=== PATIENT | female | born 1990 | race Caucasian/White ===

== ENCOUNTER 2017-07-27 05:55 | Inpatient (IN) | payer OTHER ==
[~2017-07-27] VITALS: Ht 175.3 cm; Wt 2.7 kg
[2017-07-27] MEDS ORDERED: PRENATAL 19 TA1 EACH PO (07:31)
== END 2017-07-30 11:43 | DRG 766 ==
LOC: LDR 05:55 → OB/GYN 05:55
PROVIDERS: Obstetrics & Gynecology
PROC: 3E033VJ Introduction of Other Hormone into Peripheral Vein, Percutaneous Approach (ICD-10-PCS; 2017-07-27)
PROC: 4A1HXCZ Monitoring of Products of Conception, Cardiac Rate, External Approach (ICD-10-PCS; 2017-07-27)
PROC: 4A033R1 Measurement of Arterial Saturation, Peripheral, Percutaneous Approach (ICD-10-PCS; 2017-07-27)
PROC: 10D00Z1 Extraction of Products of Conception, Low, Open Approach (ICD-10-PCS; principal; 2017-07-27 19:00)
DX: O61.0 Failed medical induction of labor (principal); O48.0 Post-term pregnancy; Z3A.40 40 weeks gestation of pregnancy; Z37.0 Single live birth

== ENCOUNTER 2018-08-20 19:57 | Outpatient (CLI) | payer OTHER ==
[~2018-08-20 19:57] MED LIST: PRENATAL 19 TA1 EACH PO
[2018-08-20] MEDS ORDERED: PRENATAL FORMU1 EAC1 PO (20:36)
== END 2018-08-21 14:06 ==
LOC: OBS/DEL 19:57
DX: O60.03 Preterm labor without delivery, third trimester (principal); Z34.83 Encounter for supervision of other normal pregnancy, third trimester

== ENCOUNTER 2018-09-20 07:48 | Inpatient (IN) | payer OTHER ==
[~2018-09-20] VITALS: Ht 175.3 cm; Wt 3.2 kg
[~2018-09-20 07:48] MED LIST changes: +PRENATAL FORMU1 EAC1 PO
[2018-09-23] MEDS ORDERED: OBSTETRIX DHA1 EACH PO (09:59)
== END 2018-09-23 11:07 | DRG 785 ==
LOC: OB/GYN 07:48 → O/R 08:21 → OB/GYN 08:21 → LDR 09:31 → O/R 11:53 → OB/GYN 13:22
PROVIDERS: ADMIT Obstetrics & Gynecology
PROC: 0UL70ZZ Occlusion of Bilateral Fallopian Tubes, Open Approach (ICD-10-PCS; 2018-09-20)
PROC: 4A0HXFZ Measurement of Products of Conception, Cardiac Rhythm, External Approach (ICD-10-PCS; 2018-09-20)
PROC: 10D00Z1 Extraction of Products of Conception, Low, Open Approach (ICD-10-PCS; principal; 2018-09-20 10:00)
DX: O82 Encounter for cesarean delivery without indication (principal); O69.81X0 Labor and delivery complicated by cord around neck, without compression, not applicable or unspecified; Z3A.39 39 weeks gestation of pregnancy; Z37.0 Single live birth; Z30.2 Encounter for sterilization